=== PATIENT | female | born 1960 | race Caucasian/White ===

== ENCOUNTER 2018-04-30 17:40 | Emergency (ER) | payer BC ==
[2018-04-30 17:56] VITALS: BP 136/83; PULSE 64; RESP 18; TEMP 100
--- NOTE | 2018-04-30 18:08 | ED ---
Lower Extremity Injury HPI - General Chief Complaint: Extremity Injury, Lower Stated Complaint: Foot Injury Time Seen by Provider: 04/30/18 17:49 Source: patient, RN notes reviewed Mode of arrival: wheelchair Limitations: no limitations - History of Present Illness Initial Comments: This is a 58-year-old female who presents to the emergency department with chief complaint of right foot injury. Patient states approximately 45 minutes ago she was playing pickle ball. She states that the end of her right foot curled under and she heard cracking. She states that she was unable to bear weight on that part of her foot and was walking on her heel. Denies any other injuries or trauma. Denies fever, chills, chest pain, shortness of breath, abdominal pain, nausea or vomiting, numbness or tingling, headache or vision changes. - Related Data Home Medications Medication Instructions Recorded Confirmed Melatonin 10 mg PO HS 04/30/18 04/30/18 Potassium 99 mg PO HS 04/30/18 04/30/18 Allergies Allergy/AdvReac Type Severity Reaction Status Date / Time No Known Allergies Allergy Verified 04/30/18 18:35 Review of Systems ROS Statement: Those systems with pertinent positive or pertinent negative responses have been documented in the HPI. ROS Other: All systems not noted in ROS Statement are negative. Past Medical History Past Medical History: No Reported History History of Any Multi-Drug Resistant Organisms: None Reported Past Surgical History: No Surgical Hx Reported Past Psychological History: No Psychological Hx Reported Smoking Status: Never smoker Past Alcohol Use History: Daily Past Drug Use History: None Reported General Exam - General Exam Comments Initial Comments: General: Awake and alert, well-developed; in no apparent distress. HEENT: Head atraumatic, normocephalic. Pupils are equal, round and reactive to light. Extraocular movements intact. Oropharynx moist without erythema or exudate. Neck: Supple. Normal ROM. Cardiovascular: Regular rate and rhythm. No murmurs, rubs or gallops. Chest symmetrical. Respiratory: Lungs clear to auscultation bilaterally. No wheezes, rales or rhonchi. Normal respiratory effort with no use of accessory muscles. Musculoskeletal: Normal range of motion of the right ankle and foot. There is tenderness on palpation of the distal fourth and fifth metatarsals. Mild soft tissue swelling is noted. No erythema or ecchymosis. Sensation is intact. Pedal pulses are 2+ equal and palpable bilaterally. Skin: [place], warm and dry without rashes or lesions. Neurological: Alert and oriented x3. CN II-XII grossly intact. Speech is fluent and answers are appropriate. No focal neuro deficits. Psychiatric: Normal mood and affect. No overt signs of depression or anxiety noted. Limitations: no limitations Course Vital Signs 04/30/18 17:51 Temperature 100.0 F H Pulse Rate 64 Respiratory 18 Rate Blood Pressure 136/83 O2 Sat by Pulse 98 Oximetry Medical Decision Making - Medical Decision Making This is a 58-year-old female who presents to the emergency department with chief complaint of right foot injury. X-ray reveals an acute non-displaced fracture of the fifth metatarsal. Patient is provided with a postop shoe. She is also provided with follow-up information for orthopedics. She is to remain non-weightbearing. Instructed patient to use ice, Tylenol or Motrin as needed. Vitals are stable and she is in no acute distress. She will be discharged home at this time. She is in agreement with plan and voices understanding. All questions were answered. - Radiology Data Radiology results: report reviewed X-ray right foot impression: Acute nondisplaced fracture of the fifth metatarsal. Disposition Clinical Impression: Fracture of 5th metatarsal Disposition: HOME SELF-CARE Condition: Good Instructions: Foot Fracture in Adults (ED) Additional Instructions: Please follow-up with orthopedics within 1-2 days. Please remain non- weightbearing. Please follow up with primary care provider within 1-2 days. Return to emergency department if symptoms should worsen or any concerns arise. Is patient prescribed a controlled substance at d/c from ED?: No Referrals: Ashly Massey MD [Primary Care Provider] - 1-2 days Bjorn Gutierrez MD [STAFF PHYSICIAN] - 1-2 days Time of Disposition: 19:03
--- NOTE | 2018-04-30 18:44 | XR ---
EXAMINATION TYPE: XR foot complete RT DATE OF EXAM: 04/30/2018 COMPARISON: NONE HISTORY: Foot pain TECHNIQUE: 3 views FINDINGS: There is mild hallux valgus. There is nondisplaced oblique fracture distal shaft of the fif th metatarsal. There is no dislocation. IMPRESSION: Acute nondisplaced fracture of the fifth metatarsal.
== END 2018-04-30 19:12 | disposition home or self-care (01) ==
LOC: EC 17:40
DX: S92.354A Nondisplaced fracture of fifth metatarsal bone, right foot, initial encounter for closed fracture (principal); X50.1XXA Overexertion from prolonged static or awkward postures, initial encounter; Y93.73 Activity, racquet and hand sports; Y92.39 Other specified sports and athletic area as the place of occurrence of the external cause
CPT/HCPCS: 99283